=== PATIENT | male | born 1935 | race Caucasian/White ===

== ENCOUNTER 2018-12-03 15:18 | Emergency (ER) | payer MEDICARE, MEDICAID ==
[2018-12-03] MEDS ORDERED: Sodium Chloride 0.9% 10 ML Syringe FLUSH PRN (16:06)
--- NOTE | 2018-12-03 17:06 | EDM.PDOC ---
ED HPI GENERAL MEDICAL PROBLEM - General Chief Complaint: Gastrointestinal Problem Stated Complaint: BLEEDING FROM RECTUM Time Seen by Provider: 12/03/18 16:06 Source of Information: Reports: Patient, RN Notes Reviewed History Limitations: Reports: No Limitations - History of Present Illness INITIAL COMMENTS - FREE TEXT/NARRATIVE: Patient is an 83-year-old male who presents to the ED for evaluation of bleeding from the rectum. The patient states that he has been bleeding from his rectum for the past 2-3 weeks. He notes that the color is dark red and coffee grounds. He was seen for this last and [place] and he received 2 units of blood on November 28 for this. He states he does have a colonoscopy scheduled for Tuesday this week. The patient notes that the bleeding did increase overnight, he does now feel shaky. The patient states that "I know I am low on blood", as he relates this to how he felt when he had to get the 2 units previously. The patient denies any dizziness, lightheadedness, chest pain , shortness of breath. The patient could not quantify the amount of blood coming from his rectum. - Related Data Allergies Allergy/AdvReac Type Severity Reaction Status Date / Time tetanus and diphtheria Allergy Severe Hives Verified 12/03/18 15:51 toxoids [Tetanus&Diphtheria Toxoid] Home Meds: Home Meds Propranolol [Inderal] 10 mg PO BID 09/18/13 [History] Rosuvastatin Calcium [Crestor] 5 mg PO 09/18/13 [History] rifAMPin [Rifampin] 300 mg PO BID 09/18/13 [History] Past Medical History HEENT History: Reports: Impaired Vision Cardiovascular History: Reports: High Cholesterol, Hypertension Respiratory History: Reports: None Gastrointestinal History: Reports: GI Bleed Genitourinary History: Reports: None Musculoskeletal History: Reports: None Neurological History: Reports: None Psychiatric History: Reports: None Endocrine/Metabolic History: Reports: None Hematologic History: Reports: Blood Transfusion(s) Immunologic History: Reports: None Oncologic (Cancer) History: Reports: None Dermatologic History: Reports: None - Infectious Disease History Infectious Disease History: Reports: None - Past Surgical History Head Surgeries/Procedures: Reports: None GI Surgical History: Reports: Hernia Repair/Other Social & Family History - Tobacco Use Smoking Status *Q: Former Smoker Used Tobacco, but Quit: Yes Month/Year Tobacco Last Used: 1989 - Caffeine Use Caffeine Use: Reports: Coffee - Recreational Drug Use Recreational Drug Use: No ED ROS GENERAL - Review of Systems Review Of Systems: See Below Constitutional: Denies: Fever, Chills HEENT: Reports: No Symptoms Respiratory: Denies: Shortness of Breath, Cough Cardiovascular: Denies: Chest Pain GI/Abdominal: Reports: Black Stool. Denies: Abdominal Pain, Nausea, Vomiting : Reports: No Symptoms Musculoskeletal: Reports: No Symptoms Skin: Reports: No Symptoms Neurological: Denies: Dizziness, Syncope Psychiatric: Reports: No Symptoms Hematologic/Lymphatic: Reports: No Symptoms Immunologic: Reports: No Symptoms ED EXAM, GI/ABD - Physical Exam Exam: See Below Exam Limited By: No Limitations General Appearance: Alert, WD/WN, No Apparent Distress Eyes: Bilateral: Normal Appearance Throat/Mouth: Normal Inspection, Normal Lips, Normal Teeth, Normal Gums, Normal Oropharynx, Normal Voice, No Airway Compromise Head: Atraumatic, Normocephalic Neck: Normal Inspection, Supple, Non-Tender, Full Range of Motion Respiratory/Chest: No Respiratory Distress, Lungs Clear, Normal Breath Sounds, No Accessory Muscle Use, Chest Non-Tender Cardiovascular: Normal Peripheral Pulses, Regular Rate, Rhythm, No Murmur GI/Abdominal Exam: Normal Bowel Sounds, Soft, Non-Tender, No Distention, No Mass Rectal (Males) Exam: Normal Exam, Normal Rectal Tone, Prostate Normal, Heme - Stool Extremities: Normal Inspection, Normal Capillary Refill Neurological: Alert, Oriented, Normal Cognition, Normal Gait, No Motor/Sensory Deficits Psychiatric: Normal Affect, Normal Mood Skin Exam: Warm, Dry, Intact, Normal Color, No Rash Course - Vital Signs Last Recorded V/S: Last Vital Signs Temp 98.5 F 12/03/18 15:48 Pulse 66 12/03/18 15:48 Resp 16 12/03/18 15:48 BP 148/84 H 12/03/18 15:48 Pulse Ox 95 12/03/18 15:48 - Orders/Labs/Meds Orders: Active Orders 24 hr Category Date Time Status Peripheral IV Care [RC] . DIRECTED Care 12/03/18 16:07 Ordered RED BLOOD CELLS LP [BBK] Stat Lab 12/03/18 16:09 Ordered TYPE AND SCREEN [BBK] Stat Lab 12/03/18 16:06 Ordered Sodium Chloride 0.9% [Saline Flush] Med 12/03/18 16:06 Ordered 10 ml FLUSH ASDIRECTED PRN Peripheral IV Insertion Adult [OM.PC] Routine Oth 12/03/18 16:06 Ordered Transfuse PRBC [Transfuse Red Blood Cells] [COMM] Oth 12/03/18 16:09 Ordered Urgent Medication Orders Sodium Chloride (Saline Flush) 10 ml FLUSH ASDIRECTED PRN PRN Reason: Keep Vein Open Last Admin: 12/03/18 16:20 Dose: 10 ml Labs: Laboratory Tests 12/03/18 12/03/18 Range/Units 16:18 16:18 Hgb 11.0 L (13.7-17.5) gm/L Hct 37.5 L (40.1-51.0) % Sodium 138 (136-145) mEq/L Potassium 4.1 (3.5-5.1) mEq/L Chloride 103 (98-107) mEq/L Carbon Dioxide 28 (21-32) mEq/L Anion Gap 11.1 (5-15) BUN 20 H (7-18) mg/dL Creatinine 1.1 (0.7-1.3) mg/dL Est Cr Clr Drug Dosing 55.14 mL/min Estimated GFR (MDRD) > 60 (>60) mL/min BUN/Creatinine Ratio 18.2 H (14-18) Glucose 143 H (83-115) mg/dL Calcium 8.5 (8.5-10.1) mg/dL Total Bilirubin 0.3 (0.2-1.0) mg/dL AST 19 (15-37) U/L ALT 28 (16-63) U/L Alkaline Phosphatase 78 (46-116) U/L Total Protein 7.3 (6.4-8.2) g/dl Albumin 3.8 (3.4-5.0) g/dl Globulin 3.5 gm/dL Albumin/Globulin Ratio 1.1 (1-2) Meds: Medications Generic Name Dose Route Start Last Admin Trade Name Freq PRN Reason Stop Dose Admin Sodium Chloride 10 ml 12/03/18 16:06 12/03/18 16:20 Saline Flush FLUSH 10 ml ASDIRECTED PRN Administration Keep Vein Open - Re-Assessments/Exams Free Text/Narrative Re-Assessment/Exam: 12/03/18 17:06 Patient presents to the ED for evaluation of dark stools. Have ordered a hemoglobin and hematocrit, and did prophylactically order to base of packed red blood cells, and IV be placed. His hemoglobin is only 11 at this time, and his Hemoccult was heme negative. It appears that the patient does not meet criteria for a blood transfusion in the ER today. Will cancel the blood order. Will discuss with the patient his results and give general recommendations. Departure - Departure Time of Disposition: 17:18 Disposition: Home, Self-Care 01 Condition: Fair Clinical Impression: Dizziness - Discharge Information *PRESCRIPTION DRUG MONITORING PROGRAM REVIEWED*: No *COPY OF PRESCRIPTION DRUG MONITORING REPORT IN PATIENT MODESTA: No Instructions: Dehydration, Elderly, [id number] Additional Instructions: You have been evaluated in the ED today for your dizziness. Your hemoglobin level was 11. A normal range is 12-15, you do not need blood products at this ED visit. Recommend that you increase your oral fluid intake and eat a hearty meal with red meats and green vegetables. Recommend that you follow-up with your primary care provider in [place] tomorrow morning to discuss the need for the colonoscopy on Tuesday. If you should develop increasing dizziness, lightheadedness please return to the ED for reevaluation. Please return to the ER if your symptoms should change or worsen. - My Orders Last 24 Hours: My Active Orders 12/03/18 16:06 TYPE AND SCREEN [BBK] Stat Sodium Chloride 0.9% [Saline Flush] 10 ml FLUSH ASDIRECTED PRN Peripheral IV Insertion Adult [OM.PC] Routine 12/03/18 16:07 Peripheral IV Care [RC] . DIRECTED 12/03/18 16:09 RED BLOOD CELLS LP [BBK] Stat Transfuse PRBC [Transfuse Red Blood Cells] [COMM] Urgent - Assessment/Plan Last 24 Hours: My Active Orders 12/03/18 16:06 TYPE AND SCREEN [BBK] Stat Sodium Chloride 0.9% [Saline Flush] 10 ml FLUSH ASDIRECTED PRN Peripheral IV Insertion Adult [OM.PC] Routine 12/03/18 16:07 Peripheral IV Care [RC] . DIRECTED 12/03/18 16:09 RED BLOOD CELLS LP [BBK] Stat Transfuse PRBC [Transfuse Red Blood Cells] [COMM] Urgent
== END 2018-12-03 17:30 | disposition home or self-care (01) ==
LOC: JD.ED 15:18
DX: R42 Dizziness and giddiness (principal); E78.00 Pure hypercholesterolemia, unspecified; I10 Essential (primary) hypertension; Z88.7 Allergy status to serum and vaccine; Z79.899 Other long term (current) drug therapy; Z87.891 Personal history of nicotine dependence
CPT/HCPCS: 36415; 80053; 82270; 85014; 85018; 86850; 86900; 86901; 86922; 99283

== ENCOUNTER 2019-05-11 18:21 | Emergency (ER) | payer MEDICARE, MEDICAID ==
[2019-05-11] MEDS ORDERED: Sodium Chloride 0.9% 1,000 ML IV SCH (19:30)
--- NOTE | 2019-05-11 19:48 | EDM.PDOC ---
ED HPI GENERAL MEDICAL PROBLEM - General Chief Complaint: Abdominal Pain Stated Complaint: BROUGHT BY DR GONZALEZ Time Seen by Provider: 05/11/19 19:10 Source of Information: Reports: Patient History Limitations: Reports: No Limitations - History of Present Illness INITIAL COMMENTS - FREE TEXT/NARRATIVE: This is an 83-year-old male. He apparently comes from home and was somewhere in the hospital and brought to the ER because he was complaining of shortness of breath and chest pain. He is not complaining of shortness of breath and chest pain presently. He is complaining of abdominal pain but he cannot localize where it's hurting. He has a history in April 10 and he states a surgeon in [place] looked in his belly because he has cancer. He thinks this may be liver cancer of some type but he doesn't know for sure. After which they sent him down to [facility] in [place] and he says they didn't do anything for him there and they sent him home. He has no idea what kind of cancer that he has. He has not been drinking fluids or eating much since he's been home. There does not appear to be any family members with him at this time. The first thing he noticed about the patient that he is extremely jaundiced. He is a very poor historian and I don't have any other information that I can get from him. He says he feels like he's been congested recently and his mouth is really dry and he wants some water. He denies any fever or chills he denies any significant cough. He states when he urinates it is real orange or pink. He did have a bowel movement this morning it was rather small and hard. The patient apparently lives alone. He does have a brother that lives around here and a daughter as well that we are going to try to contact to get some additional information. Abdomen Pain Score (Numeric/FACES): 6 - Related Data Allergies Allergy/AdvReac Type Severity Reaction Status Date / Time tetanus and diphtheria Allergy Severe Hives Verified 05/11/19 18:30 toxoids [Tetanus&Diphtheria Toxoid] Home Meds: Home Meds Propranolol [Inderal] 10 mg PO BID 09/18/13 [History] Rosuvastatin Calcium [Crestor] 5 mg PO 09/18/13 [History] rifAMPin [Rifampin] 300 mg PO BID 09/18/13 [History] Past Medical History HEENT History: Reports: Impaired Vision Cardiovascular History: Reports: High Cholesterol, Hypertension Respiratory History: Reports: None Gastrointestinal History: Reports: GI Bleed Genitourinary History: Reports: None Musculoskeletal History: Reports: None Neurological History: Reports: None Psychiatric History: Reports: None Endocrine/Metabolic History: Reports: None Hematologic History: Reports: Blood Transfusion(s) Immunologic History: Reports: None Oncologic (Cancer) History: Reports: None Dermatologic History: Reports: None - Infectious Disease History Infectious Disease History: Reports: None - Past Surgical History Head Surgeries/Procedures: Reports: None GI Surgical History: Reports: Hernia Repair/Other Social & Family History - Tobacco Use Smoking Status *Q: Former Smoker Used Tobacco, but Quit: Yes Month/Year Tobacco Last Used: 1989 - Caffeine Use Caffeine Use: Reports: Coffee ED ROS GENERAL - Review of Systems Review Of Systems: See Below Constitutional: Reports: Malaise, Weakness, Fatigue. Denies: Fever, Chills HEENT: Reports: Rhinitis, Other (Dry throat). Denies: Throat Pain Respiratory: Reports: Shortness of Breath. Denies: Wheezing, Cough, Sputum Cardiovascular: Reports: Chest Pain, Dyspnea on Exertion. Denies: Edema Endocrine: Reports: Fatigue GI/Abdominal: Reports: Abdominal Pain, Constipation. Denies: Diarrhea, Nausea, Vomiting : Reports: Other (very dark urine) Musculoskeletal: Reports: Other (generalized aches and soreness) Skin: Reports: Jaundice Neurological: Reports: Difficulty Walking, Weakness. Denies: Change in Speech Psychiatric: Reports: No Symptoms ED EXAM, GI/ABD - Physical Exam Exam: See Below Exam Limited By: No Limitations General Appearance: Alert, No Apparent Distress, Thin Eyes: Bilateral: Normal Appearance (Marked jaundice) Ears: Normal External Exam, Normal Canal, Normal TMs, Other (total body jaundice ) Nose: Other (dry). No: Nasal Drainage, Clear Rhinorrhea Throat/Mouth: Other (dentures, very dry mucus membranes). No: Normal Voice, No Airway Compromise Head: Normocephalic Neck: Supple, Non-Tender Respiratory/Chest: No Respiratory Distress, Lungs Clear, Normal Breath Sounds, Chest Non-Tender. No: Rhonchi, Wheezing Cardiovascular: Regular Rate, Rhythm, No Murmur GI/Abdominal Exam: Soft, Abnormal Bowel Sounds, Other (decreased BS, mildly tender in all 4 quadrants, no masses noted, soft, no bruits) Back Exam: Decreased Range of Motion Extremities: Normal Inspection, Normal Range of Motion, Other (jaundice). No: Pedal Edema Neurological: Alert, Oriented, Slow to Respond. No: Confused Psychiatric: Normal Affect, Normal Mood Skin Exam: Warm, Dry, Other (total body jaundice, poor skin turgor) EKG INTERPRETATION EKG Date: 05/11/19 Time: 18:20 EKG Interpretation Comments: EKG does not show any acute ST or T-wave changes. It is a normal sinus rhythm rate of 68. There is no obvious ischemia noted. He does have low voltage noted. Course - Vital Signs Last Recorded V/S: Last Vital Signs Temp 97.5 F 05/11/19 18:25 Pulse 68 05/11/19 18:25 Resp 16 05/11/19 18:25 BP 104/68 05/11/19 18:25 Pulse Ox 100 05/11/19 18:25 - Orders/Labs/Meds Orders: Active Orders 24 hr Category Date Time Status EKG 12 Lead [EKG Documentation Completion] [RC] STAT Care 05/11/19 19:21 Active Abdomen 2V AP Flat Upright [CR] Stat Exams 05/11/19 19:22 Taken CXR [Chest 1V Frontal] [CR] Stat Exams 05/11/19 19:22 Taken CULTURE BLOOD [BC] Stat Lab 05/11/19 20:42 Received CULTURE BLOOD [BC] Stat Lab 05/11/19 20:58 Received Sodium Chloride 0.9% [Normal Saline] 1,000 ml Med 05/11/19 19:30 Active IV ASDIRECTED Blood Culture x2 Reflex Set [OM.PC] Stat Oth 05/11/19 20:35 Ordered Medication Orders Sodium Chloride (Normal Saline) 1,000 mls @ 500 mls/hr IV ASDIRECTED KARINA Last Admin: 05/11/19 20:18 Dose: 500 mls/hr Labs: Laboratory Tests 05/11/19 05/11/19 05/11/19 Range/Units 19:40 19:46 19:46 WBC 12.20 H (4.23-9.07) K/mm3 RBC 5.04 (4.63-6.08) M/mm3 Hgb 13.5 L D (13.7-17.5) gm/dl Hct 40.6 (40.1-51.0) % MCV 80.6 (79.0-92.2) fl MCH 26.8 (25.7-32.2) pg MCHC 33.3 (32.2-35.5) g/dl RDW Std Deviation 72.0 H (35.1-43.9) fL Plt Count 271 (163-337) K/mm3 MPV 10.4 (9.4-12.3) fl Neut % (Auto) 79.9 H (34.0-67.9) % Lymph % (Auto) 9.1 L (21.8-53.1) % [place] % (Auto) 9.7 (5.3-12.2) % Eos % (Auto) 0.7 L (0.8-7.0) Baso % (Auto) 0.1 (0.1-1.2) % Neut # (Auto) 9.75 H (1.78-5.38) K/mm3 Lymph # (Auto) 1.11 L (1.32-3.57) K/mm3 [place] # (Auto) 1.18 H (0.30-0.82) K/mm3 Eos # (Auto) 0.09 (0.04-0.54) K/mm3 Baso # (Auto) 0.01 (0.01-0.08) K/mm3 Manual Slide Review Abnormal smear Puncture Site Rt radial ABG pH 7.36 (7.35-7.45) ABG pCO2 36.5 (35.0-45.0) mmHg ABG pO2 74.0 L (80.0-100.0) mmHg ABG HCO3 20.1 L (22.0-26.0) meq/L ABG O2 Saturation 93.7 L (96.0-97.0) % ABG Base Excess -4.2 L (-2-2.0) Philipp Test Positive A-a Gradient 31 mmHg O2 Delivery Device Room air FiO2 21.00 (21.00-100.00) % Sodium 129 L (136-145) mEq/L Potassium 4.7 (3.5-5.1) mEq/L Chloride 94 L (98-107) mEq/L Carbon Dioxide 23 (21-32) mEq/L Anion Gap 16.7 H (5-15) BUN 57 H D (7-18) mg/dL Creatinine 4.4 H D (0.7-1.3) mg/dL Est Cr Clr Drug Dosing 13.79 mL/min Estimated GFR (MDRD) 13 (>60) mL/min BUN/Creatinine Ratio 13.0 L (14-18) Glucose 145 H (83-115) mg/dL Lactic Acid (0.4-2.0) mmol/L Calcium 8.3 L (8.5-10.1) mg/dL Total Bilirubin 22.9 H (0.2-1.0) mg/dL AST 155 H (15-37) U/L ALT 121 H (16-63) U/L Alkaline Phosphatase 890 H (46-116) U/L Troponin I < 0.017 (0.00-0.056) ng/mL C-Reactive Protein 9.8 H* (<1.0) mg/dL NT-Pro-B Natriuret Pep (0-450) pg/mL Total Protein 6.9 (6.4-8.2) g/dl Albumin 2.1 L (3.4-5.0) g/dl Globulin 4.8 gm/dL Albumin/Globulin Ratio 0.4 L (1-2) Lipase 303 (73-393) U/L Urine Color (Yellow) Urine Appearance (Clear) Urine pH (5.0-8.0) Ur Specific Madeline (1.005-1.030) Urine Protein (Negative) Urine Glucose (UA) (Negative) Urine Ketones (Negative) Urine Occult Blood (Negative) Urine Nitrite (Negative) Urine Bilirubin (Negative) Urine Urobilinogen (0.2-1.0) Ur Leukocyte Esterase (Negative) Urine RBC (0-5) /hpf Urine WBC (0-5) /hpf Ur Squamous Epith Cells (0-5) /hpf Other Crystals (NONE) /hpf Amorphous Sediment (NOT SEEN) /hpf Urine Bacteria (FEW) /hpf Hyaline Casts (0-5) /lpf Urine Mucus (FEW) /hpf 05/11/19 05/11/19 05/11/19 Range/Units 19:46 19:46 23:04 WBC (4.23-9.07) K/mm3 RBC (4.63-6.08) M/mm3 Hgb (13.7-17.5) gm/dl Hct (40.1-51.0) % MCV (79.0-92.2) fl MCH (25.7-32.2) pg MCHC (32.2-35.5) g/dl RDW Std Deviation (35.1-43.9) fL Plt Count (163-337) K/mm3 MPV (9.4-12.3) fl Neut % (Auto) (34.0-67.9) % Lymph % (Auto) (21.8-53.1) % [place] % (Auto) (5.3-12.2) % Eos % (Auto) (0.8-7.0) Baso % (Auto) (0.1-1.2) % Neut # (Auto) (1.78-5.38) K/mm3 Lymph # (Auto) (1.32-3.57) K/mm3 [place] # (Auto) (0.30-0.82) K/mm3 Eos # (Auto) (0.04-0.54) K/mm3 Baso # (Auto) (0.01-0.08) K/mm3 Manual Slide Review Puncture Site ABG pH (7.35-7.45) ABG pCO2 (35.0-45.0) mmHg ABG pO2 (80.0-100.0) mmHg ABG HCO3 (22.0-26.0) meq/L ABG O2 Saturation (96.0-97.0) % ABG Base Excess (-2-2.0) Philipp Test A-a Gradient mmHg O2 Delivery Device FiO2 (21.00-100.00) % Sodium (136-145) mEq/L Potassium (3.5-5.1) mEq/L Chloride (98-107) mEq/L Carbon Dioxide (21-32) mEq/L Anion Gap (5-15) BUN (7-18) mg/dL Creatinine (0.7-1.3) mg/dL Est Cr Clr Drug Dosing mL/min Estimated GFR (MDRD) (>60) mL/min BUN/Creatinine Ratio (14-18) Glucose (83-115) mg/dL Lactic Acid 2.4 H* (0.4-2.0) mmol/L Calcium (8.5-10.1) mg/dL Total Bilirubin (0.2-1.0) mg/dL AST (15-37) U/L ALT (16-63) U/L Alkaline Phosphatase (46-116) U/L Troponin I (0.00-0.056) ng/mL C-Reactive Protein (<1.0) mg/dL NT-Pro-B Natriuret Pep 942 H (0-450) pg/mL Total Protein (6.4-8.2) g/dl Albumin (3.4-5.0) g/dl Globulin gm/dL Albumin/Globulin Ratio (1-2) Lipase (73-393) U/L Urine Color Zoey H (Yellow) Urine Appearance Slt cloudy H (Clear) Urine pH 5.5 (5.0-8.0) Ur Specific Madeline 1.025 (1.005-1.030) Urine Protein 1+ H (Negative) Urine Glucose (UA) Trace H (Negative) Urine Ketones Negative (Negative) Urine Occult Blood Negative (Negative) Urine Nitrite Negative (Negative) Urine Bilirubin 3+ H (Negative) Urine Urobilinogen 1.0 (0.2-1.0) Ur Leukocyte Esterase Negative (Negative) Urine RBC 0-5 (0-5) /hpf Urine WBC 0-5 (0-5) /hpf Ur Squamous Epith Cells 0-5 (0-5) /hpf Other Crystals Rare (NONE) /hpf Amorphous Sediment Few H (NOT SEEN) /hpf Urine Bacteria Moderate H (FEW) /hpf Hyaline Casts 20-30 H (0-5) /lpf Urine Mucus Moderate H (FEW) /hpf Meds: Medications Generic Name Dose Route Start Last Admin Trade Name Freq PRN Reason Stop Dose Admin Sodium Chloride 1,000 mls @ 500 mls/hr 05/11/19 19:30 05/11/19 20:18 Normal Saline IV 500 mls/hr ASDIRECTED KARINA Administration Discontinued Medications Generic Name Dose Route Start Last Admin Trade Name Freq PRN Reason Stop Dose Admin Piperacillin Sod/Tazobactam 100 mls @ 200 mls/hr 05/11/19 20:53 05/11/19 22: 07 Sod 2.25 gm/ Sodium Chloride IV 05/11/19 21:22 200 mls/hr ONETIME ONE Administration - Radiology Interpretation Free Text/Narrative:: Chest x-ray does not show any acute changes Flat and upright did not show any acute changes or suggestions of obstruction The x-rays were pushed down to [facility] to [facility]. - Re-Assessments/Exams Free Text/Narrative Re-Assessment/Exam: 05/11/19 21:58 I talked to the patient regarding his kidney function and liver function. I have not been able to get hold of his brother or his daughter to get additional history. 05/11/19 22:58 Once I called [facility] and spoke to the one call the indicated to me that the patient was there" April and saw Dr. Ramos. 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 The patient does not know whether he was placed on hospice or not. When he was admitted to [facility] in [place] he was also diagnosed with an obstructive jaundice. 05/11/19 23:[address] Connors at [facility]. She agrees to accept the patient in transport for further evaluation and treatment. I spoke to the patient about the transfer and he is good with this. 05/11/19 23:50 The patient was successfully put on to the ambulance and transferred down to [facility] in [place]. Departure - Departure Time of Disposition: 23:11 Disposition: DC/Tfer to Acute Hospital 02 Condition: Poor Clinical Impression: Pancreatic mass, Liver metastasis, Adenocarcinoma, Hyponatremia, Obstructive jaundice, Hypoalbuminemia Acute renal failure Qualifiers: Acute renal failure type: unspecified Qualified Code(s): N17.9 - Acute kidney failure, unspecified - Discharge Information ED Communication - ED Communication Date/Time Date: 05/11/19 Time Called: 22:55 - Discussed Case With (1) Discussed Case With (1): Admitting Provider Person/s Notified (1): Dr. Connors (She agrees to accept the patient in transport for further evaluation and treatment) - My Orders Last 24 Hours: My Active Orders 05/11/19 19:21 EKG 12 Lead [EKG Documentation Completion] [RC] STAT 05/11/19 19:22 Abdomen 2V AP Flat Upright [CR] Stat CXR [Chest 1V Frontal] [CR] Stat 05/11/19 19:30 Sodium Chloride 0.9% [Normal Saline] 1,000 ml IV ASDIRECTED 05/11/19 20:35 Blood Culture x2 Reflex Set [OM.PC] Stat 05/11/19 20:42 CULTURE BLOOD [BC] Stat 05/11/19 20:58 CULTURE BLOOD [BC] Stat - Assessment/Plan Last 24 Hours: My Active Orders 05/11/19 19:21 EKG 12 Lead [EKG Documentation Completion] [RC] STAT 05/11/19 19:22 Abdomen 2V AP Flat Upright [CR] Stat CXR [Chest 1V Frontal] [CR] Stat 05/11/19 19:30 Sodium Chloride 0.9% [Normal Saline] 1,000 ml IV ASDIRECTED 05/11/19 20:35 Blood Culture x2 Reflex Set [OM.PC] Stat 05/11/19 20:42 CULTURE BLOOD [BC] Stat 05/11/19 20:58 CULTURE BLOOD [BC] Stat
[2019-05-11] MEDS ORDERED: Piperacillin/Tazobactam 2.25 GM in Sodium Chloride 0.9% 100 ML IV ONE (20:53)
--- NOTE | 2019-05-13 08:25 | CR ---
Abdomen: Supine and upright views the abdomen were obtained. Comparison: No prior abdominal x-ray. No free air is identified. Scattered gas within colon and small bowel is noted. This appears within normal limits. Left hip prosthesis is seen with heterotopic bone noted off the lateral hip. Degenerative change is partially visualized within the lumbar spine. Bony exostosis is noted off the superior right sacrum at the sacroiliac joint which most likely relates to old trauma. No discrete soft tissue abnormality is seen. Vascular calcification is noted. Impression: 1. Findings which are believed to be incidental. 2. Nothing acute is appreciated on two-view abdominal x-ray. Diagnostic code #2 This report was dictated in [place] Standard Time
--- NOTE | 2019-05-16 09:21 | CR ---
Chest: Frontal view of the chest was obtained. Comparison: Prior chest x-ray of 05/19/12. Heart size is normal. Tortuous thoracic aorta is seen. Slight scarring is seen within both lung bases. No definite acute parenchymal change is seen. Bony structures are grossly intact. Impression: 1. Scarring within both lung bases. 2. Nothing acute is definitely appreciated on frontal chest x-ray. Diagnostic code #2 This report was dictated in [place] Standard Time
== END 2019-05-11 23:55 ==
LOC: JD.ED 18:21
DX: N17.9 Acute kidney failure, unspecified (principal); K86.9 Disease of pancreas, unspecified; E87.1 Hypo-osmolality and hyponatremia; E88.09 Other disorders of plasma-protein metabolism, not elsewhere classified; K83.1 Obstruction of bile duct; C22.8 Malignant neoplasm of liver, primary, unspecified as to type; I10 Essential (primary) hypertension; Z88.8 Allergy status to other drugs, medicaments and biological substances; Z87.891 Personal history of nicotine dependence
CPT/HCPCS: 36415; 36600; 71045; 74019; 80053; 81001; 82803; 83605; 83690; 83880; 84484; 85025; 86140; 87040; 93005; 96361; 96365; 99285; J2543; J7030; 93010; J7050